=== PATIENT | female | born 1955 | race Caucasian/White ===

== ENCOUNTER 2021-07-01 08:26 | Day surgery (SDC) | payer MEDICARE, OTHER ==
[2021-07-01] VITALS (9 sets, daily range): BP systolic 122–177; BP diastolic 61–92; PULSE 50–79; TEMP 97.3–98.7
[~2021-07-01] VITALS: Ht 175.3 cm; Wt 70.8 kg
[2021-07-01] MEDS ORDERED: PRINIVIL20 MG PO (09:39)
--- NOTE | 2021-07-01 14:15 | NUR ---
To post floor via bed. Assist to bed with this nurse and nurse Granger. Alert, denies any discomfort or needs at this time.
--- NOTE | 2021-07-01 14:45 | NUR ---
Rests in bed, alert. Spouse at bedside. Denies any needs at this time.
--- NOTE | 2021-07-01 17:00 | NUR ---
Rests in bed, alert. Toradol 15 mg iv given as ordered.
[2021-07-02 00:30] VITALS: BP 121/57; PULSE 65; TEMP 98.3
[2021-07-02 04:00] VITALS: BP 110/62; PULSE 59; TEMP 98.3
[2021-07-02 08:00] VITALS: BP 120/50; PULSE 54; TEMP 98.1
[2021-07-02] MEDS ORDERED: CEPHALEXIN500 M1 PO (08:03)
--- NOTE | 2021-07-02 09:18 | NUR ---
Initial visit; Patient thanked Writer Editor for looking in on her and offering God's blessings and to keep her in Writer Editor's prayers.
--- NOTE | 2021-07-02 10:30 | NUR ---
TILLMAN CATHETER BAG REMOVED AND LEG BAG PROVIDED. PT EDUCATED ON PROCEDURE. QUESTIONS INVITED AND ANSWERED.
--- NOTE | 2021-07-02 12:00 | NUR ---
DISCHARGE TEACHING COMPLETED. TILLMAN CARE REVIEWED. EDUCATED ON NEW MEDICATION CALLED TO PHARMACY AND MEDS TO CONTINUE. FOLLOW UP APPOINTMENT INFO PROVIDED. QUESTIONS INVITED AND ANSWERED.
== END 2021-07-02 12:25 | disposition home or self-care (01) ==
LOC: SDCO 08:26 → OB 14:15 → SDCO 07-02 12:25
DX: N99.3 Prolapse of vaginal vault after hysterectomy (principal); I10 Essential (primary) hypertension; N99.71 Accidental puncture and laceration of a genitourinary system organ or structure during a genitourinary system procedure; Z79.899 Other long term (current) drug therapy; Z79.82 Long term (current) use of aspirin
CPT/HCPCS: OP; A4314; C1769; C1781; J0690; J1100; J1885; J2250; J2405; J2704; J2710; J3010; J7120